=== PATIENT | female | born 1980 | race African-American/Black ===

== ENCOUNTER 2017-08-14 11:23 | Emergency (ER) | payer MEDICAID ==
[~2017-08-14 11:23] MED LIST: BENZ100 PO; DICL50TA3 PO; PENI500T PO
[2017-08-14 11:25] VITALS: BP 169/99; PULSE 110; RESP 20; TEMP 98; O2SAT 98
== END 2017-08-14 14:49 | disposition left against medical advice (07) ==
LOC: NED 11:23
DX: R07.9 Chest pain, unspecified (principal); Z53.21 Procedure and treatment not carried out due to patient leaving prior to being seen by health care provider
CPT/HCPCS: 99281